=== PATIENT | female | born 1970 | race Caucasian/White ===

== ENCOUNTER 2021-05-06 00:47 | Emergency (ER) | payer OTHER ==
[2021-05-06 01:18] VITALS: BP 135/69; PULSE 100; TEMP 98.1; BMI 29.0
[2021-05-06] MEDS ORDERED: ACETAMINOPHEN 325 MG TABLET (FP) PO ONE (02:41)
[2021-05-06] MEDS ORDERED: ACETAMINOPHEN 325 MG TABLET (FP) ONE (02:44)
[2021-05-06] MEDS ORDERED: KETOROLAC TROMETHAMINE 30 MG/1 ML VIAL IM ONE (05:20)
[2021-05-06] MEDS ORDERED: LIDOCAINE 5% TOPICAL PATCH TP ONE (05:20)
[2021-05-06] MEDS ORDERED: LIDOCAINE 5% TOPICAL PATCH ONE (05:25)
[2021-05-06] MEDS ORDERED: KETOROLAC TROMETHAMINE 30 MG/1 ML VIAL ONE (05:25)
[2021-05-06] MEDS ORDERED: LIDOCAINE PATCH REMOVAL MC SCH (22:00)
== END 2021-05-06 05:37 | disposition home or self-care (01) ==
LOC: JER 00:47
PROC: 3E0233Z Introduction of Anti-inflammatory into Muscle, Percutaneous Approach (ICD-10-PCS; principal; 2021-05-06)
DX: M79.621 Pain in right upper arm (principal); S46.811A Strain of other muscles, fascia and tendons at shoulder and upper arm level, right arm, initial encounter
CPT/HCPCS: 70450-TC; 72125-TC; 73030-TC-RT-FY; 99285-25

== ENCOUNTER 2023-10-09 07:11 | Emergency (ER) | payer OTHER ==
[2023-10-09 07:25] VITALS: BP 129/85; PULSE 90; RESP 16; TEMP 98.5; BMI 22.8
[2023-10-09] MEDS ORDERED: IBUPROFEN 400 MG TABLET (FP) PO ONE ×2 (08:42→08:56)
== END 2023-10-09 09:50 | disposition home or self-care (01) ==
LOC: JER 07:11 → JERFT 07:11
DX: M25.562 Pain in left knee (principal); R22.42 Localized swelling, mass and lump, left lower limb; S83.92XA Sprain of unspecified site of left knee, initial encounter; W01.0XXA Fall on same level from slipping, tripping and stumbling without subsequent striking against object, initial encounter
CPT/HCPCS: 73562-TC-LT-FY; 99283-25